=== PATIENT | female | born 1995 | race Caucasian/White ===

== ENCOUNTER 2025-06-03 11:48 | Outpatient (CLI) | payer OTHER, SELFPAY ==
--- NOTE | ~2025-06-03 | XR_ITS ---
EXAMINATION: XR chest 2V Exam Date/Time: 06/03/2025 12:05 CDT HISTORY: Asthma, Shortness of breath Comparison: None. RESULT: Lines, tubes, and devices: None. Lungs and pleura: Clear. Cardiomediastinal silhouette: Unremarkable. Other: No acute upper abdominal finding. Exaggerated lower thoracic kyphosis. Mild-moderate anterior wedge deformity at multiple levels in the lower thoracic spine. IMPRESSION: No acute cardiopulmonary process. Mild-moderate anterior wedge deformity at multiple levels in the lower thoracic spine, may be seconda ry to acute or chronic injury. Correlate for acute pain/tenderness. Comparison to outside studies be helpful if available. Reviewed, dictated and finalized at location [facility]. IMPRESSION: No acute cardiopulmonary process. Mild-moderate anterior wedge deformity at multiple levels in the lower thoracic spine, may be secondary to acute or chronic injury. Correlate for acute pain/t enderness. Comparison to outside studies be helpful if available.
== END 2025-06-03 11:49 | disposition home or self-care (01) ==
PROVIDERS: PCP Nurse Practitioner; Visit Provider Nurse Practitioner
DX: S22.000A Wedge compression fracture of unspecified thoracic vertebra, initial encounter for closed fracture (principal); X58.XXXA Exposure to other specified factors, initial encounter; J45.909 Unspecified asthma, uncomplicated
CPT/HCPCS: 71046